=== PATIENT | male | born 1990 | race Two or more races ===

== ENCOUNTER 2020-03-15 08:11 | Emergency (ER) | payer OTHER ==
[2020-03-15] MEDS ORDERED: Ketorolac Tromethamine 60 MG/2 ML VIAL ONE (09:14)
[2020-03-15] MEDS ORDERED: Diazepam 5 MG TAB ONE (09:18)
== END 2020-03-15 09:39 | disposition home or self-care (01) ==
LOC: BURERS 08:11
DX: M62.830 Muscle spasm of back (principal)
CPT/HCPCS: 96372; 99283; J1885